=== PATIENT | female | born 1995 | race Caucasian/White ===

== ENCOUNTER 2024-05-02 20:31 | Emergency (ER) | payer OTHER, SELFPAY ==
[2024-05-02 20:33] VITALS: BMI 32.9
[2024-05-02 20:37] VITALS: BP 93/68
[2024-05-02 20:56] LABS: % Basophils 0.4 % (0-2); % Eosinophils 0.1 % (0-6); % Immature Granulocytes 0.5 % (0-0.5); % Lymphocytes 17.3 % (20.5-51.1); % Monocytes 2.9 % (1.7-9.3); % Neutrophils 78.8 % (42.2-75.2); Absolute Basophils 0.1 10^3/uL (0-0.2); Absolute Immature Granulocytes 0.1 10^3/uL (0-0.05); Absolute Lymphocytes 2.5 10^3/uL (1.2-3.4); Absolute Monocytes 0.4 10^3/uL (0.1-0.6); Absolute Neutrophils 11.2 10^3/uL (1.4-6.5); Hematocrit 40.8 % (37.0-47.0); Hemoglobin 15.3 g/dL (12.0-16.0); Mean Corp Hgb Conc. 37.5 g/dL (33.0-37.0); Mean Corpuscular Hgb 30.1 pg (27.0-31.0); Mean Corpuscular Volume 80.2 fL (81.0-99.0); Mean Platelet Volume 8.9 fL (7.4-10.4); Nucleated Red Blood Cells % 0 %; Platelet Count 299 10^3/uL (130-400); Red Blood Cell Count 5.09 10^6/uL (4.20-5.40); Red Cell Dist. Width 12.5 % (11.5-14.5); White Blood Cell Count 14.2 10^3/uL (4.8-10.8)
[2024-05-02] MEDS: NSS 1000 IV ×2 (21:00→21:01)
[2024-05-02 21:03] VITALS: BP 101/75
[2024-05-02 21:07] LABS: HCG, Serum Qualitative Screen Negative
[2024-05-02 21:09] LABS: ALT (SGPT) 17 U/L (0-35); AST (SGOT) 24 U/L (14-36); Albumin 5.3 g/dl (3.5-5.0); Alkaline Phosphatase 75 U/L (38-126); Blood Urea Nitrogen 14 mg/dl (7-17); Calcium 10.3 mg/dl (8.4-10.2); Carbon Dioxide 20 mmol/L (22-30); Chloride 104 mmol/L (98-107); Estimated Creatinine Clearance 109 ml/min; Glucose 147 mg/dl (70-99); Lipase 141 U/L (23-300); Sodium 137 mmol/L (135-145); Total Bilirubin 0.8 mg/dl (0.2-1.3); Total Protein 8.3 g/dl (6.3-8.2); eGFR > 60.00
[2024-05-02 22:30] VITALS: BP 106/72
--- NOTE | 2024-05-02 23:03 | ED.GENMED ---
History of Present Illness
General
Chief Complaint: Abdominal Symptoms
Source: patient
Time Seen by Provider: 05/02/24 22:58
History of Present Illness
History of Present Illness:
28-year-old female presents to the emergency room complaining nausea vomiting. Patient was at a golf outing today and she began feeling unwell during the got pounding. She thought to get overheated and tried to drink a lot of fluid. However this
evening she began having vomiting. Patient has vomited multiple times since then. Unable to keep any fluids down. No fever. She did 1 episode of diarrhea. No sick contacts.
Past History
Past History
ED Past Medical History: Other (migraine h/a)
ED Past Surgical History: None
Social History
Tobacco: Smoker
Alcohol: Occasional
Drug: None
Personal: Single
Living: with family
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
Family History
Family History: Other (n/c)
Phy Exam
Physical Exam
Physical Exam:
General: Awake, Alert, Oriented X3. Patient appears uncomfortable due to nausea
Vitals: unremarkable
Head: Atraumatic
Eyes: Pupils equal, EOMI
Throat: Airway intact, no exudates, dry mucosa
Neck: Trachea midline
Lungs: Clear and equal b/l
Heart: Regular rate, no murmurs
Abd: Soft, Nontender, No pulsatile mass
Neuro: Nonfocal
Skin: Warm, dry, no rash
Extremities: pulses equal b/l, no edema
Course
Orders/Labs/Results
Orders:
Orders
05/02/24 20:32
Electrocardiogram (*1) Urgent
Reason for Study: Abdominal Pain
05/02/24 20:33
Test Result ONCE
05/02/24 20:51
Complete Blood Count/With Diff Urgent
Comprehensive Metabolic Panel Urgent
HCG, Serum Qualitative Screen Urgent
Lipase Urgent
05/02/24 21:00
0.9% Sodium Chloride 1000 ml [Nss] 1,000 ml IV BOLUS
05/02/24 21:01
0.9% Sodium Chloride 1000 ml [Nss] 1,000 ml IV BOLUS
05/02/24 22:55
Ondansetron Injectable [Zofran] 4 mg IV NOW STA
05/02/24 23:03
Ondansetron Injectable [Zofran] 4 mg IV NOW STA
05/03/24 00:07
Diphenhydramine [Benadryl] 25 mg IV NOW STA
Metoclopramide [Reglan] 10 mg IV NOW STA
Abnormal Lab Results
05/02/24
20:51
WBC 14.2 H 10^3/uL
(4.8-10.8)
MCV 80.2 L fL
(81.0-99.0)
MCHC 37.5 H g/dL
(33.0-37.0)
Abs Immat Gran (auto) 0.1 H 10^3/uL
(0-0.05)
Absolute Neuts (auto) 11.2 H 10^3/uL
(1.4-6.5)
Neutrophils % 78.8 H %
(42.2-75.2)
Lymphocytes % 17.3 L %
(20.5-51.1)
Carbon Dioxide 20 L mmol/L
(22-30)
Glucose 147 H mg/dl
(70-99)
Calcium 10.3 H mg/dl
(8.4-10.2)
Total Protein 8.3 H g/dl
(6.3-8.2)
Albumin 5.3 H g/dl
(3.5-5.0)
05/02/24 20:51
05/02/24 20:51
Vital Signs
Initial and Last Documented VS:
Initial Vital Signs
Temp Pulse Resp Pulse Ox
97.8 F 70 16 100
05/02/24 20:33 05/02/24 20:33 05/02/24 20:33 05/02/24 20:33
Last Documented Vital Signs
Temp Pulse Resp BP Pulse Ox
97.8 F 68 16 101/75 99
05/02/24 20:33 05/02/24 21:03 05/02/24 21:03 05/02/24 21:03 05/02/24 21:03
MDM/Problems Addressed
Differential Diagnosis Includes:
Heat exhaustion, viral illness, dehydration
MDM/Problems Addressed:
Patient presents with nausea vomiting which is intractable at home. She received a couple doses of Zofran which did not seem to make much of a difference. She also received 2 L of IV fluid. Dehydration or heat exhaustion suspected to be the
primary issue given she was out in a golf event all day. Labs show mild elevation of her white blood cell count which is nonspecific. Chemistries are reassuring. Ultimately patient had improvement with Reglan and Benadryl. She is now stable for
discharge home. Will send a prescription for Reglan in case she has recurrence of symptoms.
*Critical Care Note
Total Time (30-74mins, 75-104mins- exclusive of procedures): Not Applicable
ED Attending Note
-
Portions of this chart may have been created with voice recognition software.� Occasional wrong word or��sound alike� substitutions may have occurred due to the inherent limitations of voice recognition software.
Discharge Plan
Departure
Patient Disposition: Home (Routine Discharge)
Date of Disposition: 05/03/24
Time of Disposition: 02:27
Patient with high blood pressure during this ER visit?: No
Condition: Good
Discharge Problem:
Heat exhaustion, Nausea & vomiting
Instructions: Nausea and Vomiting, Adult (DC), Heat Illness ED
Prescriptions:
New
metoclopramide HCl [Reglan] 10 mg tablet
10 mg PO Q6H PRN (Reason: nausea and vomiting) Qty: 20 0RF
No Action
prochlorperazine maleate 10 MG tablet
10 mg PO Q8HPRN PRN (Reason: nausea/vomiting, headache) Qty: 10 0RF
Referrals:
Sulma Steen PA-C [Family Provider] -
Interventions
Interventions:
*Risk Screen - Suicide Last Done: 05/02/24 20:33
*General Assessment Last Done: 05/02/24 22:25
*Neglect/Abuse Screening Last Done: 05/02/24 20:33
*ED COVID-19 Vaccine History Last Done: 05/02/24 22:25
EB-Jeph[facility]-Zuuszoxmmn Assessment Last Done: 05/02/24 22:25
Discharge Date and Time
Print Language: WELSH
[2024-05-02] MEDS: ZOFRAN 4 MG IV (23:15)
[2024-05-02 23:30] VITALS: BP 110/76
[2024-05-03] MEDS: BENADRYL 25 MG IV (00:15)
[2024-05-03] MEDS: REGLAN 10 MG IV (00:15)
[2024-05-03 01:00] VITALS: BP 104/68
== END 2024-05-03 03:07 | disposition home or self-care (01) ==
LOC: EMR 20:31
PROVIDERS: Emergency Medicine; EMERGENCY PHYSICIAN Emergency Medicine; FAMILY PHYSICIAN Physician Assistant
DX: T67.5XXA Heat exhaustion, unspecified, initial encounter (principal); X30.XXXA Exposure to excessive natural heat, initial encounter; R11.2 Nausea with vomiting, unspecified; F17.200 Nicotine dependence, unspecified, uncomplicated
CPT/HCPCS: 99284; 96374; 96375 ×2; 96361; 80053; 83690; 84703; 85025